=== PATIENT | male | born 1990 | race Caucasian/White ===

== ENCOUNTER 2018-09-26 12:26 | Emergency (ER) | payer BC, OTHER ==
[2018-09-26 12:54] VITALS: BP 150/104
--- NOTE | 2018-09-26 13:34 | UC ---
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 He states that he dropped a stepladder on his left foot while at work 2 days ago. He has been able to walk on it but it has been sore and swollen. It has now turned ecchymotic. He denies any numbness or weakness. He had no other injury. - History of Current Complaint Chief Complaint: UCLowerExtremity Stated Complaint: FOOT INJURY Time Seen by Provider: 09/26/18 12:55 Hx Obtained From: Patient Pain Intensity: 7 - Allergies/Home Medications Allergies/Adverse Reactions: Allergies Allergy/AdvReac Type Severity Reaction Status Date / Time No Known Allergies Allergy Verified 09/26/18 12:54 Home Medications: Home Medications NK [No Home Medications Reported] 09/26/18 [History Confirmed 09/26/18] PMH/Surg Hx/FS Hx/Imm Hx Previously Healthy: Yes - Surgical History Surgical History: Yes Surgery Procedure, Year, and Place: scoped tendon repair - Family History Known Family History: Positive: None, Non-Contributory - Social History Occupation: Employed Full-time Alcohol Use: Rare Substance Use Type: None Smoking Status (MU): Current Every Day Smoker Review of Systems All Other Systems Reviewed And Are Negative: Yes Constitutional: Positive: Negative Skin: Positive: Bruising Respiratory: Positive: Negative Cardiovascular: Positive: Negative Musculoskeletal: Positive: Decreased ROM, Edema. Negative: Arthralgia, Calf Tenderness Neurological: Positive: Negative Physical Exam Triage Information Reviewed: Yes Appearance: Well-Appearing, No Pain Distress, Well-Nourished Vital Signs: Initial Vital Signs Temp 98.2 F 09/26/18 12:51 Pulse 67 09/26/18 12:51 Resp 16 09/26/18 12:51 BP 150/104 09/26/18 12:51 Pulse Ox 100 09/26/18 12:51 ENT: Positive: Hearing grossly normal Neck: Positive: Supple, Nontender Respiratory Exam: Normal Cardiovascular: Positive: RRR Musculoskeletal: Positive: Other: - Edema to the left forefoot that ecchymosis and minor tenderness near the base of the small and fourth toe. No breaks in the skin. Able to ambulate normally. Neurological Exam: Normal Skin Exam: Normal Diagnostics - Radiology x-ray left foot Radiology Interpretation Completed By: Radiologist - No acute fracture, soft tissue swelling Lower Extremity Course/Dx - Course Course Of Treatment: X-rays are negative. I placed the patient in Rene wrap for comfort which helped. He will use NSAID, Rene wrap and Rice therapy. Follow up as needed. He will need primary care follow-up for elevated blood pressures however. - Differential Dx/Diagnosis Differential Diagnosis/HQI/PQRI: Contusion, Fracture (Closed), Sprain, Strain Provider Diagnosis: Contusion of left foot including toes, Elevated blood pressure reading Discharge - Sign-Out/Discharge Documenting (check all that apply): Patient Departure All imaging exams completed and their final reports reviewed: Yes - Discharge Plan Condition: Improved Disposition: HOME Patient Education Materials: Foot Contusion (ED) Forms: *Work Release Referrals: [facility] [Outside] [facility] [Outside] Additional Instructions: Call for primary care referral. He will need to have your blood pressure rechecked in the next 1-2 weeks. Ice, elevate and use ibuprofen for discomfort. Rene wrap as needed for comfort and swelling. You may return to work now. - Billing Disposition and Condition Condition: IMPROVED Disposition: Home - Attestation Statements Document Initiated by Jonnathanibe: No
== END 2018-09-26 13:50 | disposition home or self-care (01) ==
LOC: UCEAST 12:26
DX: S90.32XA Contusion of left foot, initial encounter (principal); S90.122A Contusion of left lesser toe(s) without damage to nail, initial encounter; W22.8XXA Striking against or struck by other objects, initial encounter; Y92.9 Unspecified place or not applicable; Y99.0 Civilian activity done for income or pay; M19.072 Primary osteoarthritis, left ankle and foot; R03.0 Elevated blood-pressure reading, without diagnosis of hypertension; F17.200 Nicotine dependence, unspecified, uncomplicated
CPT/HCPCS: 99211; G0463